=== PATIENT | female | born 1985 | race Hispanic/Latino ===

== ENCOUNTER 2017-06-04 12:27 | Emergency (ER) | payer SELFPAY ==
[2017-06-04 12:37] VITALS: BP 135/77; PULSE 86; RESP 10; O2SAT 99
[2017-06-04 14:51] LABS: BASOPHILS % (AUTO) 0.1 % (0-3); EOSINOPHILS % (AUTO) 7.4 % (0-5); MONOCYTES % (AUTO) 4.9 % (4-12); Mean Corpuscular Hemoglobin 30.1 pg (27.0-35.0); Mean Corpuscular Volume 88.8 fL (81-100); Platelet Count 224 bil/L (150-400)
--- NOTE | 2017-06-04 15:12 | ED.REPORT ---
HPI-Abd Pain F Under 40 Date of Service Jun 04, 2017 ED Provider: Shayan Iqbal MD The patient is a 32 year old female who presents to the ED due to 8/10, mid- abdominal pain onset yesterday. Associated symptoms include nausea, weakness, dysuria, dizziness and vaginal bleeding that began yesterday morning. Her last normal menstrual cycle was last Monday.The bleeding is constant, she has to change her pad every 20-30 min. Pt had the control shot 8 months ago from her doctor at [facility]. She is supposed to receive it every 3 months , but she discontinued use because it made her sick. Pt denies fever and vomiting. She is not currently on any control. The pt and her are trying to conceive. Pt had a normal pelvic US in May of 2016. Nursing Notes Stated Complaint: ABD PAIN Chief Complaint: Female Abdominal Pain Nursing Notes Reviewed: Yes Allergies: Coded Allergies: No Known Allergies (Unverified , 08/07/16) Scheduled PRN Ibuprofen (Ibuprofen) 600 Mg Tablet 600 MG PO QID PRN PRN For Pain General Time Seen by MD: 15:10 Chief Complaint Abdominal pain Hx Obtained From: Patient, Spouse, [employer] Arrived By: Walk-in Sudden in Onset?: Yes Onset Occurred: Yesterday Symptom Duration: Since onset Location: : Abdomen lower Quality: Painful Severity: Current: Pain level 8 out of 10 Associated with: Reports: Nausea Recent Healthcare: No recent doctor visit, No recent hospitalization Similar Sx Previous: No Past Medical History Past Medical History 4 pregnancies, 4 children Past Surgical History denies Social History Other Social History: Good social support, , Local resident Ambulatory Status Independent Review of Systems Constitutional: Reports: Weakness - generalized, Denies: Chills, Fever GI: Reports: Nausea, Denies: Vomiting Female: Reports: Dysuria, Vaginal bleeding - abnl, Denies: Complete sys rev & neg: except as marked. Neurologic: Reports: Dizziness, Weakness Physical Exam Initial Vital Signs Vital Signs (First) Date Time Temp Pulse Resp B/P Pulse Ox O2 Delivery O2 Flow Rate FiO2 06/04/17 12:37 36.6 86 10 135/77 99 Room Air Initial VS: Reviewed General/Constitutional: Awake, Cooperative depressed affect Respiratory / Chest: Atraumatic, No respiratory distress Cardiovascular: Heart rate NL, Regular rhythm, Heart sounds NL Tenderness/Guarding/Rebound: Positive: Tender suprapubic Back: No muscle spasm midline cervical tenderness Skin: Atraumatic, Color NL, No rash Female Genitourinary: External genitalia NL, No cervical motion tend, No adnexal mass Vaginal Bleeding / Discharge: Positive: Bleeding mild normal appearing cervix uterus normal in size Neurologic: Oriented X3, Speech NL, No motor deficits Upper Extremity / MS: Atraumatic, Inspection NL, Full range of motion, No deformity Lower Extremity / Pelvis / MS: Atraumatic, Inspection NL, No swelling Interpretation & Diagnostics Lab Results Interpretation Result Diagram: 06/04/17 1425 06/04/17 1425 Test 06/04/17 14:25 06/04/17 15:31 White Blood Count 8.0th/mm3 (3.8-10.1) Red Blood Count 4.45mil/mm3 (3.90-5.20) Hemoglobin 13.4g/dL (12.0-15.6) Hematocrit 39.5% (35.0-46.0) Mean Corpuscular Volume 88.8fL (81-100) Mean Corpuscular Hemoglobin 30.1pg (27.0-35.0) Mean Corpuscular Hemoglobin Concent 33.9% (32.0-37.0) Red Cell Distribution Width 12.2% (12.3-15.4) Platelet Count 224bil/L (150-400) Neutrophils (%) (Auto) 51.0% (40-74) Lymphocytes (%) (Auto) 36.3% (14-46) Monocytes (%) (Auto) 4.9% (4-12) Eosinophils (%) (Auto) 7.4% (0-5) Basophils (%) (Auto) 0.1% (0-3) Sodium Level 140mEq/L (134-144) Potassium Level 3.4mEq/L (3.5-5.2) Chloride Level 106mEq/L (97-108) Carbon Dioxide Level 21mmol/L (18-29) Blood Urea Nitrogen 8mg/dL (6-20) Creatinine 0.40mg/dL (0.57-1.00) Estimat Glomerular Filtration Rate 265mL/min (>59) Glucose Level 92mg/dL (60-99) Calcium Level 8.7mg/dL (8.5-10.1) Magnesium Level 2.0mg/dL (1.6-2.6) Total Bilirubin 0.3mg/dL (0.0-1.2) Aspartate Amino Transf (AST/SGOT) 24U/L (0-50) Alanine Aminotransferase (ALT/SGPT) 25U/L (0-32) Alkaline Phosphatase 107U/L (25-150) Total Protein 7.1g/dL (6.4-8.4) Albumin 3.9g/dL (3.4-5.0) Lipase 28U/L (13-60) Hold Craig Top Tube Received (Received) Hold Urine Received (Received) Lab Results Interpretation: negative Urine Dip negative except for blood Re-Eval/Medical Decision Med Decision/Clinical Course Med Decision/Clinical Course: 32-year-old female with abnormal menstrual bleeding after having been on Depo-Provera injectable contraceptives. Though she has not had this in 8 months, she has not had a period until recently. She has been state that they are trying to conceive another child however she is interested in starting oral contraceptives to regulate her cycles and stop the bleeding. They are aware that oral contraceptives will keep them from conceiving Re-Evaluation/Progress : Time of Eval: 16:20 Re-Evaluation/Progress Note: Pelvic exam performed. Mild vaginal bleeding. No acute findings and plan for discharge. F/U and RTER warnings given. Pt understands and agrees with plan. Counseled Regarding: Diagnosis, Lab results, Need for follow-up, When/why to return to ED Discharge & Departure Primary Impression: Abnormal uterine bleeding Disposition: Home Discharge Condition All VS Reviewed: Yes Condition: Stable Additional Instructions: Thank you for entrusting us with your care today. Emergency Department evaluation included interview, examination, and labs. There are no emergent causes for your symptoms. Your pain and bleeding is most likely due to an abnormal menstrual cycle. The best way to regulate your cycles is by using control. I am sending you home with a prescription for control. Use Ibuprofen as needed for pain. Make a follow up appointment in the next week with your doctor at [facility]. Return to the Emergency Department if you experience any new or worsening symptoms. I hope you feel better soon! Referrals: [facility] (PCP) [facility], [facility]1983 Scribe Attestation Portion of this note were transcribed by Marisela Torres. I, Dr. Iqbal, personally performed the history, physical exam, and medical decision-making: I reviewed and confirmed the accuracy for the information in the transcribed note. Signed by: alex Be, 06/04/17 1800 copies to: [facility] Shayan Iqbal MD Jun 04, 2017 15:11 Marisela Torres Jun 04, 2017 15:26
[2017-06-04] MEDS ORDERED: IBUP-1827 PO (16:39)
[2017-06-04 16:53] VITALS: BP 136/92; PULSE 65; O2SAT 98
== END 2017-06-04 16:45 | disposition home or self-care (01) ==
LOC: SED 12:27
DX: N93.9 Abnormal uterine and vaginal bleeding, unspecified (principal)

== ENCOUNTER 2017-08-13 18:54 | Emergency (ER) | payer MEDICAID ==
[~2017-08-13 18:54] MED LIST: IBUP-1827 PO
[2017-08-13 19:01] VITALS: BP 131/91; PULSE 113; RESP 24; O2SAT 100
[2017-08-13] MEDS ORDERED: 0.9% Sodium Chloride 1,000 ML IV ONE (19:28)
--- NOTE | 2017-08-13 19:28 | ED.REPORT ---
HPI-Headache Date of Service Aug 13, 2017 ED Provider: Arsenio Gupta MD Pt is a one-month 32 year old female with a history of a head injury in 2003 who presents to the ED complaining of an intermittent headache onset 1000 today. She describes the pain as burning and excruciating. Additional symptoms include dizziness, subjective fever, and intermittent nausea. Nursing Notes Stated Complaint: HEADACHE Chief Complaint: Headache Nursing Notes Reviewed: Yes Allergies: Coded Allergies: No Known Allergies (Unverified , 08/07/16) Scheduled PRN Ibuprofen (Ibuprofen) 600 Mg Tablet 600 MG PO QID PRN PRN For Pain General Time Seen by MD: 19:22 Chief Complaint Headache Hx Obtained From: Patient, Spouse Arrived By: Walk-in Sudden in Onset?: Yes Onset Occurred: 9 - 12 hours ago Symptom Duration: Intermittent Quality: Burning, Painful Severity: Current: Moderate Severity: Maximum: Severe Recent Healthcare: No recent doctor visit, No recent hospitalization Past Medical History Past Medical History on 08/13/17 Past Surgical History denies Smoking History Never Smoker Social History Other Social History: Good social support, , Local resident Ambulatory Status Independent Review of Systems Constitutional: Reports: Fever (subjective) GI: Reports: Nausea (intermittent) Neurologic: Reports: Dizziness, Headache Complete sys rev & neg: except as marked. Physical Exam Initial Vital Signs Vital Signs (First) Date Time Temp Pulse Resp B/P Pulse Ox O2 Delivery O2 Flow Rate FiO2 08/13/17 19:01 37.7 113 24 131/91 100 Room Air Initial VS: Reviewed Respiratory: No respiratory distress Lymphatic: No lymphadenopathy Extremities: Vascular intact, Neuro intact, No swelling, No tenderness Skin: Warm, Dry, No cyanosis Psychiatric: Mood/affect normal, Behavior normal, Normal thought content General/Constitutional: Awake, Alert Head / Eyes: Atraumatic, Normocephalic Neck: Supple, Full range of motion Neurologic: Oriented X3, Speech NL Interpretation & Diagnostics Lab Results Interpretation Result Diagram: 08/13/17192708/13/171927 Test 08/13/17 19:28 08/13/17 19:59 White Blood Count 9.0th/mm3 (3.8-10.1) Red Blood Count 4.34mil/mm3 (3.90-5.20) Hemoglobin 13.4g/dL (12.0-15.6) Hematocrit 39.1% (35.0-46.0) Mean Corpuscular Volume 90.1fL (81-100) Mean Corpuscular Hemoglobin 30.9pg (27.0-35.0) Mean Corpuscular Hemoglobin Concent 34.3% (32.0-37.0) Red Cell Distribution Width 12.7% (12.3-15.4) Platelet Count 195bil/L (150-400) Neutrophils (%) (Auto) 52.7% (40-74) Lymphocytes (%) (Auto) 35.5% (14-46) Monocytes (%) (Auto) 5.6% (4-12) Eosinophils (%) (Auto) 6.0% (0-5) Basophils (%) (Auto) 0.1% (0-3) Sodium Level 136mEq/L (134-144) Potassium Level 3.8mEq/L (3.5-5.2) Chloride Level 103mEq/L (97-108) Carbon Dioxide Level 20mmol/L (18-29) Blood Urea Nitrogen 9mg/dL (6-20) Creatinine 0.55mg/dL (0.57-1.00) Estimat Glomerular Filtration Rate 183mL/min (>59) Glucose Level 113mg/dL (60-99) Calcium Level 8.8mg/dL (8.5-10.1) Total Bilirubin 0.2mg/dL (0.0-1.2) Aspartate Amino Transf (AST/SGOT) 25U/L (0-50) Alanine Aminotransferase (ALT/SGPT) 26U/L (0-32) Alkaline Phosphatase 87U/L (25-150) Total Protein 6.9g/dL (6.4-8.4) Albumin 4.0g/dL (3.4-5.0) Hold Craig Top Tube Received (Received) Re-Eval/Medical Decision Source of Hx: Old records Re-Evaluation/Progress : Time of Eval: 21:08 )( Patient Status: Condition improved Re-Evaluation/Progress Note: Pt rechecked. Performed physical exam. She states that her headache is nearly gone. Counseled Regarding: Diagnosis, Lab results, Need for follow-up, When/why to return to ED Discharge & Departure Impression: Primary Impression: Migraine Migraine type: unspecified Status migrainosus presence: without status migrainosus Intractability: not intractable Qualified Code: G43.909 - Migraine, unspecified, not intractable, without status migrainosus Disposition: Home Discharge Condition All VS Reviewed: Yes Condition: Stable Patient Instructions: Migraine Headache (ED) Additional Instructions: No dangerous cause for your headache is discovered today. I recommended follow- up at [facility] [place] tomorrow if the headache persists to any significant degree. [employer] Ninguna causa peligrosa para [place]ke dolor de evangelina se descubre kathryn. Le recomend el seguimiento en [place] maana si el dolor de evangelina persiste en cualquier dawit significativo Referrals: [facility] Scribe Attestation Portions of this note were transcribed by Jaja Sherwood. I, Dr. Gupta, personally performed the history, physical exam and medical decision-making; I reviewed and confirmed the accuracy of the information in the transcribed note. copies to: [facility] Arsenio Gupta MD Aug 13, 2017 19:28 Jaja Sherwood Aug 13, 2017 20:00
[2017-08-13] MEDS ORDERED: MetoCLOpramide 5 mg/mL 2 mL Inj IVPUSH ONE (19:30)
[2017-08-13] MEDS ORDERED: Ondansetron 2 mg/mL 2 mL Inj IVPUSH ONE (19:30)
[2017-08-13 19:49] LABS: BASOPHILS % (AUTO) 0.1 % (0-3); MONOCYTES % (AUTO) 5.6 % (4-12); Mean Corpuscular Hemoglobin 30.9 pg (27.0-35.0); Mean Corpuscular Volume 90.1 fL (81-100); NEUTROPHILS % (AUTO) 52.7 % (40-74); Platelet Count 195 bil/L (150-400)
[2017-08-13] MEDS ORDERED: 0.9% Sodium Chloride 50 ML ONE (20:11)
[2017-08-13 22:05] VITALS: BP 95/58; PULSE 88; RESP 16; O2SAT 99
== END 2017-08-13 22:07 | disposition home or self-care (01) ==
LOC: SED 18:54
DX: O26.891 Other specified pregnancy related conditions, first trimester (principal); G43.909 Migraine, unspecified, not intractable, without status migrainosus; Z3A.01 Less than 8 weeks gestation of pregnancy
CPT/HCPCS: 80053; 81002; 81025; 85025; 96361; 96374; 96375; 99284; J1200; J2405; J2765; J7030